=== PATIENT | female | born 1975 | race Two or more races ===

== ENCOUNTER 2025-02-02 03:53 | Emergency (ER) | payer OTHER ==
[~2025-02-02] VITALS: Ht 165.1 cm; Wt 65.8 kg
[2025-02-02] MEDS ORDERED: PLAVIX75 MG (04:16)
[2025-02-02] MEDS ORDERED: LEVOTHYROXINE25 MCG PO (04:16)
[2025-02-02] MEDS ORDERED: ZESTRIL20 MG PO (04:17)
[2025-02-02] MEDS ORDERED: ROSUVASTATIN CA10 MG (04:17)
[2025-02-02] MEDS ORDERED: EMGALITY P120 MG/1 M SQ (04:18)
[2025-02-02] MEDS ORDERED: KETOROLAC TROMETHAMINE 30 MG VIAL IV STA (05:43)
[2025-02-02] MEDS ORDERED: KETOROLAC TROMETHAMINE 30 MG VIAL ONE ×2 (05:44→14:43)
[2025-02-02] MEDS ORDERED: 0.9 % SODIUM CHLORIDE 1,000 ML IV ONE (05:45)
[2025-02-02 06:26] LABS: BASO % 0.3 % (0.1-1.2); EOS # 0.06 (0.04-0.54); EOS % 0.5 % (0.7-7.0); LYMPH # 0.96 (1.18-3.74); LYMPH % 8.1 % (19.3-53.1); MEAN PLATELET VOLUME 9.70 fl (9.4-12.4); MONO # 0.70 (0.24-0.82); MONO % 5.9 % (4.7-12.5); NEUT # 10.07 (1.56-6.13); NEUT % 84.9 % (34.0-71.1); RED CELL DISTRIBUTION WIDTH 11.7 % (11.6-14.4)
[2025-02-02 06:44] LABS: INR 1.04
[2025-02-02 06:51] LABS: ALT/SGPT 49.0 U/L (12-78); AST/SGOT 19.0 U/L (15-37); BILIRUBIN TOTAL 0.47 mg/dL (0.3-1.2); BUN CREA RATIO 21.0 (7.0-25.0); CREATININE SERUM 0.68 mg/dL (0.55-1.02); GFR 92.35; GLOBULINA 3.5 G/DL (2.4-3.5); GLUCOSE FASTING 96.0 mg/dL (65-100); OSMOLALITY SERUM 283.0 MOSM/KG (275-295)
[2025-02-02 08:36] LABS: URINE APPEARANCE Cloudy; URINE BILIRRUBIN Negative (NEGATIVE); URINE BLOOD Trace; URINE COLOR Yellow; URINE GLUCOSE Negative (NEGATIVE); URINE KETONE Negative (NEGATIVE); URINE LEUKOCYTE Small; URINE NITRATE Negative; URINE PROTEIN Trace (NEGATIVE); URINE UROBILINOGEN 0.2 E.U./dl
[2025-02-02 08:37] LABS: URINE BACTERIA 343.2 uL (0.0-1933); URINE CAST 8.50 uL (0.0-1.40); URINE EPITHELIAL CELLS 59.5 uL (0.0-38.8); URINE RBC 9.3 uL (0.0-20.8); URINE WBC 105.3 uL (0.0-23.2)
[2025-02-02 08:48] LABS: URINE CRYSTALS FEW /HPF; URINE MUCUS MODERATE
[2025-02-02] MEDS ORDERED: DIPHTH,PERTUSS(ACELL),TET VAC 0.5 ML SYRINGE IM STA (08:56)
[2025-02-02] MEDS ORDERED: DIPHTH,PERTUSS(ACELL),TET VAC 0.5 ML SYRINGE IM ONE (09:51)
[2025-02-02] MEDS ORDERED: KETOROLAC TROMETHAMINE 30 MG VIAL IU STA (14:30)
[2025-02-02] MEDS ORDERED: IBU800 MG PO (14:34)
== END 2025-02-02 15:00 | disposition home or self-care (01) ==
LOC: ER 03:53
PROVIDERS: General Practice
DX: G89.11 Acute pain due to trauma (principal); G44.309 Post-traumatic headache, unspecified, not intractable; E03.8 Other specified hypothyroidism; Z88.1 Allergy status to other antibiotic agents; Z91.040 Latex allergy status
CPT/HCPCS: 36415; 70450; 72040; 73030; 90471; 90714; 93005; 96365; 96366; 99284; J1670; J1885 ×2; J3490; J7030